=== PATIENT | female | born 1985 | race Caucasian/White ===

== ENCOUNTER 2021-05-15 11:04 | Outpatient (REF) | payer OTHER, SELFPAY ==
[2021-05-15 13:51] LABS: Syphilis Screen Nonreactive (Nonreactive)
[2021-05-18 04:26] LABS: HIV AB/AG Nonreactive (Nonreactive); HIV Num 1 0.09 S/CO (0.00-0.99)
[2021-05-18 04:30] LABS: ~HepC Num1 0.16 S/CO (0.00-0.79); ~Hepatitis C Antibody Nonreactive (Nonreactive)
== END 2021-05-15 11:05 | disposition home or self-care (01) ==
LOC: HO.LAB 11:04
PROVIDERS: PCP Internal Medicine; Visit Provider Internal Medicine
DX: Z11.4 Encounter for screening for human immunodeficiency virus [HIV] (principal); A74.9 Chlamydial infection, unspecified; A59.9 Trichomoniasis, unspecified
CPT/HCPCS: 36415; 86780; 86803; 87389; 99202

== ENCOUNTER 2023-07-06 10:35 | Outpatient (AMB) | payer OTHER, SELFPAY ==
--- NOTE | 2023-07-06 10:41 | HO.NEPHOV ---
HPI HPI Comments History of Present Illness Details I had the pleasure of seeing Odalis in follow-up of her history of MATEUS. She is on anticoagulation for thrombotic episodes. She follows up with vascular Physicians. Her blood pressure has been at goal. She denies any chest pain, shortness of breath, pedal edema, urinary symptoms, hematuria, flank pain, renal stones or orthostatic symptoms. She does not take any nonsteroidal anti-inflammatories. She has not had any renal stones for some time. She maintains good hydration. She is not a diabetic. She has gained some weight. Her renal functions have been stable. COUNTS INCLUDE 234 BEDS AT THE [facility] Medical History (Updated 07/06/23 @ 10:54 by Silke Holt MA) DVT (deep venous thrombosis) Trichomonas infection Kidney stones Asthma Chlamydia Surgical History (Updated 07/06/23 @ 10:54 by Silke Holt MA) History of hysterectomy History of intravascular stent placement Family History (Updated 07/06/23 @ 10:55 by Silke Holt MA) Father No problems noted. Father Cancer Mother Cancer Maternal Grandfather Heart disease Diabetes Social History (Updated 07/06/23 @ 10:56 by Silke Holt MA) Alcohol intake: unknown Patient Tobacco Use Status: Never used Tobacco Vital Signs 07/06/23 10:43 Height 5 ft Weight 176 lb 2 oz BMI 34.4 BP 110/70 Blood Pressure Location Rt brachial Position Sitting Pulse 101 H Pulse Source Pulse Oximeter Pulse Oximetry (%) 96 Oxygen Delivery Method Room Air Physical Exam Vital Signs: Last Vital Signs Pulse 101 H 07/06/23 10:43 BP 110/70 07/06/23 10:43 Pulse Ox 96 07/06/23 10:43 Oxygen Delivery Method Room Air 07/06/23 10:43 BMI result Body Mass Index 34.4 Const General: comfortable and no acute distress Orientation/consciousness: patient oriented x3 HEENT Head: Yes normocephalic Mouth: Normal oral and palatal mucosa present Eyes EOM: EOMs intact bilaterally Neck Neck: Yes supple Resp Auscultation: clear to auscultation bilaterally Cardio Jugular venous distension: no JVD Rate: regular rate GI Palpation (GI): Soft to palpation Auscultation: normal bowel sounds General: Yes no CVA tenderness Back/Spine/Pelvis Back: no CVA tenderness Skin General skin exam: no rashes or lesions noted Neuro General: patient oriented x3 and moves all extremities Extrem General: Yes no pedal edema Assessment & Plan Assessment & Plan (1) Kidney stones: Code(s): N20.0 - Calculus of kidney Plan: 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 Her renal functions are currently stable. She has not had any recurrence of nephrolithiasis recently. She maintains good hydration. I ordered a 24 hour urine collection for GFR given history of recurrent MATEUS. She should cut back sodium in the diet, increase his citrate, cut back on meat and increase fluids and vegetables. Her last renal ultrasound did not show any nephrolithiasis. She will do weight 24 hour urine collection for stone workup after her next office visit. She avoids nonsteroidal anti-inflammatories. I did not make any medication changes today. All questions answered. Follow-up appointment given. Orders: Orders Creatinine Today N20.0 - Calculus of kidney Blood Urea Nitrogen Today N20.0 - Calculus of kidney Electrolytes Today N20.0 - Calculus of kidney Blood Urea Nitrogen 11 Months N20.0 - Calculus of kidney Protein Creatinine Ratio, Ur Today N20.0 - Calculus of kidney UA and rflx microscopic Today N20.0 - Calculus of kidney Creatinine Clearance Urine 11 Months N20.0 - Calculus of kidney Creatinine 11 Months N20.0 - Calculus of kidney Electrolytes 11 Months N20.0 - Calculus of kidney Coding Level of Care Code Est Pt Level 3 (43255) Diagnoses Kidney stones N20.0 Results Reviewed Nephrology Results: No Data to Display
[2023-07-06 10:43] VITALS: BP 110/70; PULSE 101; O2SAT 96; BMI 34.4
== END 2023-07-06 11:32 | disposition home or self-care (01) ==
PROVIDERS: PCP Internal Medicine; Visit Provider Internal Medicine Nephrology
DX: N20.0 Calculus of kidney (principal)
CPT/HCPCS: 99213

== ENCOUNTER → 2023-07-06 10:35 | Outpatient (BNVA) | payer OTHER, SELFPAY | PROVIDERS: PCP Internal Medicine; Visit Provider Internal Medicine Nephrology | DX: N20.0 Calculus of kidney (principal) | CPT/HCPCS: 99212 ==